=== PATIENT | male | born 1995 | race Caucasian/White ===

== ENCOUNTER 2017-02-07 20:46 | Emergency (ER) | payer OTHER ==
[~2017-02-07] VITALS: Ht 182.9 cm; Wt 68.0 kg
[2017-02-07 20:47] VITALS: BP 135/82
[2017-02-07] MEDS ORDERED: LEVO137T14 PO (21:01)
--- NOTE | 2017-02-07 22:53 | ED PDOC ---
Post-Departure Follow-Up WHEN SEEING PT, POOR EYE CONTACT. PT APPEARED ANNOYED. ASKED HOW LONG IT WOULD TAKE TO GET A FLU SWAB AND CHEST XRAY DONE AND ADVISED THESE TESTS TAKE APPROXIMATELY 30 MINUTES OR MORE. PT STOOD UP AND STATED, "I DON'T WANT TO SIT HERE FOR ANOTHER FUCKING [address] [facility] PEOPLE" AND STORMED OUT WITH MOM. NO PAPERWORK WAS SIGNED BY THIS PT FOR AMA. CHASE ALEXANDRA PA-C Feb 07, 2017 22:53
--- NOTE | 2017-02-08 16:37 | ECGEPIP ---
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
== END 2017-02-07 23:10 | disposition left against medical advice (07) ==
LOC: M ED 21:47
DX: R07.9 Chest pain, unspecified (principal); R06.02 Shortness of breath; J45.909 Unspecified asthma, uncomplicated; E03.9 Hypothyroidism, unspecified; Z79.899 Other long term (current) drug therapy

== ENCOUNTER → 2017-02-08 | Outpatient (CLI) | payer OTHER ==
[~2017-02-08] MED LIST: LEVO137T14 PO
--- NOTE | 2017-02-08 18:54 | REP ---
CHEST X-RAY PA AND LATERAL: 02/08/2017: Clinical history: Chest pain. Findings: Two PA views and a lateral projection were provided. No prior study. The lungs are well inflated without pleural effusion, lateral pleural thickening, apical scarring or pneumothorax. No infiltrate, atelectasis or mass. The heart, mediastinal and hilar contours are normal. The aorta and airway intact. There is no widening the mediastinum. Bony thorax shows no focal lesion. There are a few cuffed bronchi in the perihilar regions that might reflect reactive airway disease or bronchitis. Bones are intact. There is no free air. No pneumothorax or pneumomediastinum. Impression: 1. No acute infiltrate, effusion, cardiomegaly, edema, atelectasis or mass. 2. A few cuffed bronchi in the perihilar regions may reflect reactive airway disease or bronchitis. Bones intact. Signed by Nico Rodriguez MD 02/08/2017 08:16 P
== END ==
LOC: M LRY 16:47
PROVIDERS: ATTEND Physician Assistant
DX: R07.9 Chest pain, unspecified (principal)

== ENCOUNTER 2017-03-20 17:40 | Emergency (ER) | payer OTHER ==
[~2017-03-20] VITALS: Ht 182.9 cm; Wt 68.0 kg
[2017-03-20] MEDS ORDERED: PROA1AER (18:12)
[2017-03-20] MEDS ORDERED: CONC18TA14 PO (18:12)
[2017-03-20 19:54] LABS: BASO % 0.4 % (0.0-1.0); EOS % 0.4 % (0.0-3.0); LARGE UNSTAINED CELL # 0.2 K/mm3 (0.0-0.4); LARGE UNSTAINED CELL % 1.3 % (0.0-4.0); LYMPH # 2.2 K/mm3 (1.5-6.5); LYMPH % 18.2 % (24.0-44.0); MEAN CORPUSCULAR VOLUME 88.6 fl (80.0-96.0); MONO # 0.7 K/mm3 (0.0-0.8); MONO % 5.9 % (0.0-5.0); NEUTROPHILS # 8.4 K/mm3 (1.8-7.7); NEUTROPHILS % 73.9 % (36.0-66.0); PLATELET COUNT, AUTOMATED 264 k/mm3 (150-450); RED CELL DISTRIBUTION WIDTH 12.3 % (11.5-14.5); WHITE BLOOD COUNT 11.4 K/mm3 (4.0-10.0)
[2017-03-20 20:22] LABS: ANION GAP 2 MEQ/L (8-16); BLOOD UREA NITROGEN 23 MG/DL (7-18); CALCIUM LEVEL 8.7 MG/DL (8.5-10.1); CARBON DIOXIDE LEVEL 30 MEQ/L (21-32); CHLORIDE LEVEL 109 MEQ/L (98-107); CREATININE FOR GFR 1.06 MG/DL (0.70-1.30); GLUCOSE, FASTING 104 MG/DL (70-105); POTASSIUM SERUM 3.9 MEQ/L (3.5-5.1); SODIUM LEVEL 141 MEQ/L (136-145)
[2017-03-20 21:16] VITALS: BP 127/71
--- NOTE | 2017-03-21 05:40 | REP ---
Chest pain. COMPARISON: 02/08/2017. FINDINGS: The superior mediastinal structures are midline. The cardiac silhouette is unremarkable in size, shape, and position. The diaphragmatic surfaces of the lungs are regular, and the costophrenic angles are clear. The pulmonary olivares are clear. The imaged osseous structures are intact. IMPRESSION: There is no acute cardiopulmonary disease. Signed by Tomás Fuchs DO 03/21/2017 03:36 P
--- NOTE | 2017-03-22 08:29 | ECGEPIP ---
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
== END 2017-03-20 21:18 | disposition home or self-care (01) ==
LOC: EDBD 17:40 → M ED 18:44
DX: R07.9 Chest pain, unspecified (principal); I51.7 Cardiomegaly; Z79.899 Other long term (current) drug therapy

== ENCOUNTER → 2018-04-10 | Outpatient (CLI) | payer OTHER | LOC: M LRY 14:09 | DX: S99.912A Unspecified injury of left ankle, initial encounter (principal); S99.922A Unspecified injury of left foot, initial encounter; Y92.89 Other specified places as the place of occurrence of the external cause; Y93.89 Activity, other specified; Y99.8 Other external cause status; X58.XXXA Exposure to other specified factors, initial encounter | CPT/HCPCS: 73610; G0463 ==